=== PATIENT | female | born 1995 | race Two or more races ===

== ENCOUNTER 2024-05-19 12:52 | Observation (INO) | payer MEDICAID ==
[2024-05-19] MEDS ORDERED: GLYB2.5T8 PO (13:15)
[2024-05-19] MEDS ORDERED: PREN-96 PO (13:15)
== END 2024-05-19 14:43 | disposition home or self-care (01) ==
LOC: LDRP 12:52
PROVIDERS: ADMIT Obstetrics & Gynecology; ATTEND Obstetrics & Gynecology
DX: O36.8130 Decreased fetal movements, third trimester, not applicable or unspecified (principal); Z3A.34 34 weeks gestation of pregnancy; Z79.899 Other long term (current) drug therapy
CPT/HCPCS: 59025; 76818; 81002; 82948; 82962; 94760; G0378

== ENCOUNTER 2024-06-07 18:29 | Observation (INO) | payer OTHER ==
[~2024-06-07 18:29] MED LIST: GLYB2.5T8 PO; PREN-96 PO
== END 2024-06-07 19:57 | disposition home or self-care (01) ==
LOC: LDRP 18:29
PROVIDERS: ADMIT Obstetrics & Gynecology; ATTEND Obstetrics & Gynecology
DX: O47.1 False labor at or after 37 completed weeks of gestation (principal); Z3A.37 37 weeks gestation of pregnancy; Z79.899 Other long term (current) drug therapy
CPT/HCPCS: 59025; 81002; 82962; 94760; G0378

== ENCOUNTER 2024-06-23 12:53 | Inpatient (IN) | payer OTHER ==
[~2024-06-23] VITALS: Ht 160 cm; Wt 94.8 kg
[2024-06-23] MEDS ORDERED: LIDOCAINE 2%HCL (LOCAL ANESTH.) INJ 20ML MDV IJ PRN (13:15)
[2024-06-23] MEDS ORDERED: BUTORPHANOL TARTRATE 2 MG/1 ML VIAL IV PRN ×2 (13:15)
[2024-06-23 14:19] LABS: Urine Bacteria None Seen /hpf (None Seen)
[2024-06-23 14:33] LABS: Basophils # (auto) 0.1 10 ^3/uL (0-0.2); Basophils % (auto) 0.5 % (0.0-2.0); Eosinophils # (auto) 0.1 10 ^3/uL (0-0.8); Eosinophils % (auto) 1.4 % (0.0-7.0); Hemoglobin 12.3 g/dL (12.2-16.2); Lymphocytes # (auto) 2.1 10 ^3/uL (0.4-5.4); Lymphocytes % (auto) 20.7 % (10.0-50.0); Mean Corpuscular Hemoglobin 30.5 pg (28.0-32.0); Mean Corpuscular Hgb Conc. 34.1 g/dL (32.0-36.0); Mean Corpuscular Volume 89.4 fL (80.0-100.0); Monocytes # (auto) 0.7 10 ^3/uL (0-1.3); Monocytes % (auto) 7.3 % (0.0-12.0); Neutrophils # (auto) 6.9 10 ^3/uL (1.6-8.6); Neutrophils % (auto) 70.1 % (37.0-80.0); Nucleated Red Blood Cells % 0.1 %; Platelet Count (auto) 262 10^3/uL (140-450); Red Blood Cells 4.03 10^6/uL (4.0-5.20); Red Cell Distribution Width 15.2 % (11.8-14.3); White Blood Cell 9.9 10^3/uL (4.4-10.8)
[2024-06-23 14:39] LABS: Urine Blood TRACE /uL (Negative); Urine Clarity Clear (Clear); Urine Color Colorless (Yellow); Urine Protein, UAD Negative (Negative); Urine Urobilinogen Normal (Negative); Urine WBC 2 /hpf (0 - 5)
[2024-06-23 14:53] LABS: INR 0.96 (0.9-1.15); Partial Thromboplastin Time 24.2 SEC (24.5-34.5); Prothrombin Time 10.2 sec (9.3-11.8)
[2024-06-23 14:56] LABS: Amphetamine Screen, Urine Neg (NEGATIVE)
[2024-06-23 14:57] LABS: Alanine Aminotransferase 15 U/L (7-40); Albumin 4.1 g/dL (3.2-4.8); Alkaline Phosphatase 138 U/L (46-116); Anion Gap 11 (5-15); BUN/Creatinine Ratio 13.6 (10.0-20.0); Blood Urea Nitrogen 9 mg/dL (9-23); Carbon Dioxide 18 mmol/L (20-30); Chloride 107 mmol/L (98-107); Glucose 76 mg/dL (74-106); Potassium 4.1 mmol/L (3.5-5.1); Sodium 136 mmol/L (136-145)
[2024-06-23 14:57] LABS: Barbiturate Scree,Urine Neg (NEGATIVE); Benzodiazephine Screen, Urine Neg (NEGATIVE)
[2024-06-23 14:58] LABS: Cannabinoid Screen, Urine Neg (NEGATIVE); Cocaine Screen, Urine Neg (NEGATIVE); Opiate Scree,Urine Neg (NEGATIVE); Phencyclidine Screen, Urine Neg (NEGATIVE)
[2024-06-23 14:58] LABS: Aspartate Aminotransferase 19 U/L (13-40); Bilirubin, Total 0.3 mg/dL (0.2-1.0)
[2024-06-23] MEDS ORDERED: TERBUTALINE SULFATE 1 MG/ML 1ML VIAL SC PRN (15:15)
[2024-06-23] MEDS: CLINDAMYCIN 900MG IV 50 ML IV SCH (17:15)
[2024-06-23] MEDS: LACTATED RINGER'S 1,000 ML IV SCH (17:16)
[2024-06-24] MEDS: LACT. RINGERS/OXYTOCIN 20UNITS 1,000 ML IV SCH (00:31)
[2024-06-24] MEDS ORDERED: ONDANSETRON HCL 4 MG/2 ML VIAL IV PRN (03:00)
[2024-06-24] MEDS: NALBUPHINE HCL 10 MG/1ml INJECTION IM PRN (03:21)
[2024-06-24] MEDS: WITCH HAZEL-GLYCERIN PAD TOP PRN (06:51)
[2024-06-24] MEDS: PHISODERM TOP SOLN 240ML BTL TOP PRN (06:51)
[2024-06-24] MEDS: DERMOPLAST 60ML BOTTLE TOP PRN (06:51)
[2024-06-24] MEDS: ePHEDrine SULFATE 50 MG/ML AMP IV ONE (07:00)
[2024-06-24] MEDS: NALOXONE HCL 0.4 MG/ML VIAL IV ONE (07:00)
[2024-06-24] MEDS ORDERED: ROPIVACAINE HCL 200 ML ONE (07:01)
[2024-06-24 07:07] LABS: RPR Non Reactive (Non Reactive)
[2024-06-24] MEDS: fentaNYL CITRATE 100 MCG/2 ML VL IV ONE (07:54)
[2024-06-24] MEDS ORDERED: ROPIVACAINE 0.5% (5MG/ML) 20ML AMPULE IJ ONE (08:00)
[2024-06-24] MEDS: LACT. RINGERS/OXYTOCIN 20UNITS 500 ML IV ONE ×2 (10:37→10:38)
[2024-06-24] MEDS: ROPIVACAINE HCL 400mg/200ml BAG (2mg/ml) EPI ONE (10:39)
[2024-06-24 13:00] VITALS: PULSE 63; RESP 20; O2SAT 95
[2024-06-24] MEDS ORDERED: ONDANSETRON ODT 4 MG TAB PO PRN (13:30)
[2024-06-24] MEDS: IBUPROFEN 600 MG TAB PO PRN (15:22)
[2024-06-24 19:00] VITALS: BP 119/74; PULSE 60; RESP 18; TEMP 98; O2SAT 98
[2024-06-24] MEDS: DOCUSATE SOD 100 MG CAP PO SCH (22:00)
[2024-06-24 23:00] VITALS: BP 126/77; PULSE 65; RESP 16; TEMP 98.2; O2SAT 96
[2024-06-25] MEDS: ACETAMINOPHEN 325 MG TAB PO PRN (00:26)
[2024-06-25 03:27] VITALS: BP 132/78; PULSE 63; RESP 16; TEMP 97.7; O2SAT 96
[2024-06-25 07:15] VITALS: BP 132/81; PULSE 58; RESP 18; TEMP 98.3; O2SAT 98
[2024-06-25 11:30] VITALS: BP 135/81; PULSE 72; RESP 20; TEMP 99; O2SAT 97
== END 2024-06-25 13:40 | disposition home or self-care (01) | DRG 807 ==
LOC: LDRP 12:53 → NUR 06-24 19:40 → LDRP 06-24 19:41
PROVIDERS: ADMIT Obstetrics & Gynecology; ATTEND Obstetrics & Gynecology
PROC: 10D07Z6 Extraction of Products of Conception, Vacuum, Via Natural or Artificial Opening (ICD-10-PCS; principal; 2024-06-24)
PROC: 0KQM0ZZ Repair Perineum Muscle, Open Approach (ICD-10-PCS; 2024-06-24)
PROC: 0W8NXZZ Division of Female Perineum, External Approach (ICD-10-PCS; 2024-06-24)
PROC: 3E0R3BZ Introduction of Anesthetic Agent into Spinal Canal, Percutaneous Approach (ICD-10-PCS; 2024-06-24)
PROC: 3E0R33Z Introduction of Anti-inflammatory into Spinal Canal, Percutaneous Approach (ICD-10-PCS; 2024-06-24)
DX: O24.429 Gestational diabetes mellitus in childbirth, unspecified control (principal); Z37.0 Single live birth; O99.824 Streptococcus B carrier state complicating childbirth; Z3A.39 39 weeks gestation of pregnancy; Z88.0 Allergy status to penicillin; O70.1 Second degree perineal laceration during delivery
CPT/HCPCS: 36415; 59025; 59409; 62282; 80053; 80307; 81001; 82962; 85025; 85610; 85730; 86592; 86780; 86803; 86850; 86900; 86901; 94760; 94762; 96360; 96361; 96365; 96366; G0378; J2590; J3490